=== PATIENT | female | born 1955 | race Caucasian/White ===

== ENCOUNTER 2022-07-29 13:28 | Emergency (ER) | payer MEDICARE, OTHER ==
[~2022-07-29] VITALS: Ht 170.2 cm; Wt 90.9 kg
[2022-07-29] MEDS ORDERED: ketorolac tromethamine 15mg/ml inj. IM ONE (14:30)
[2022-07-29 15:01] VITALS: BP 123/74
== END 2022-07-29 15:04 | disposition home or self-care (01) ==
LOC: ER 13:29
DX: S93.602A Unspecified sprain of left foot, initial encounter (principal); W11.XXXA Fall on and from ladder, initial encounter; Y93.89 Activity, other specified; Y92.89 Other specified places as the place of occurrence of the external cause; Y99.8 Other external cause status
CPT/HCPCS: 73630; 96372; 99284; J1885; L4360